=== PATIENT | female | born 1940 | race Caucasian/White ===

== ENCOUNTER 2019-11-11 11:46 | Day surgery (SDC) | payer MEDICARE, OTHER, SELFPAY ==
[2019-11-09 08:21] VITALS: BMI 20.3
[2019-11-11] VITALS (10 sets, daily range): BP systolic 76–136; BP diastolic 38–69; PULSE 56–83; RESP 9–20; TEMP 36.1–37.2; O2SAT 92–100; BMI 20.3
[2019-11-11] MEDS: LACTATED RINGERS 1,000 ML 42 ML IV ×2 (13:49→17:02)
--- NOTE | 2019-11-11 13:49 | SUR.PREOP ---
Pt. refused IV versed at this time.
--- NOTE | 2019-11-11 14:25 | PM.PREOP ---
Pre-operative Note Interval Note History & Physical reviewed/Exam performed by Physician: Yes Changes to H&P: No H&P completed within 30 days and has changed as indicated here:: Plan for L DR BROWN
[2019-11-11] MEDS: CEFAZOLIN 2 GM/100 ML FROZ.PIGGY IV (14:27)
--- NOTE | 2019-11-11 14:59 | SUR.OPER ---
Supine on padded OR bed, head on pillow, right arm secured on padded arm board at <90 degrees abduction left surgical arm under control of surgeon onarm table, legs uncrossed, safety belt at thigh, tape over blanket over lower legs.
[2019-11-11] MEDS: BUPIVACAINE 0.25% W/ EPI 30 ML VIAL INJ (15:46)
--- NOTE | 2019-11-11 16:22 | PM.OP.1 ---
Operative Date/Time/Diagnoses Date of procedure: 11/11/19 Time of procedure: 16:22 Pre-op diagnosis: Left distal radius fracture intra-articular Post-op diagnosis: same Procedure & Clinicians Procedure: Open reduction internal fixation left distal radius fracture. Same procedure as scheduled: Yes Indications: Displaced intra-articular distal radius fracture Surgeon: Ovidio Jacobo Linux Server Administrator: Kenny Enriquez Click Yes if Unassisted: No Anesthesia Type: General Operative Notes Findings: Displaced intra-articular distal radius fracture Closure Type: primary Specimen(s): none sent Prosthetic devices, grafts, tissues, transplants, or devices: Accu Med Acu-Loc 2 VDR plate narrow left With corresponding screws Estimated Blood Loss (mL): 20 Tourniquet time (min): 67 Procedure in detail: Patient was met in the preoperative holding area with signs of severe marked MD. All last minute questions were answered. The patient was then brought back to the operating room where she was placed on the operating room table and induced under general anesthesia. The left upper extremity is then prepped and draped in normal sterile fashion and a nonsterile tourniquet was placed. A time-out was performed verifying the site and side of surgery as well as the name of the patient. The arm was exsanguinated using Esmarch and the tourniquet was insufflated 250 mm of mercury. A 7 cm long incision over the FCR was made using a 15. Blade. The FCR tendon sheath was then opened using a 15 blade in the FCR tendon was retracted ulnarly. The floor of the FCR sheath was then opened and the FPL was retracted ulnarly as well exposing the pronator quadratus. This was taken off and in a '7'from the distal radius using electrocautery. This exposed fracture site a reduction maneuver was performed to reduce the distal radius. A narrow left Accu Med plate was then selected and K-wires were used to place it provisionally. Fluoroscopic guidance was used to verify our plate positioning. A 10 mm kickstand was used proximally. The distal row screws were then placed verifying there trajectory outside of the joint. Radial styloid screws were then also placed. The kickstand was then removed and the plate was sucked down to bone using a cortical screw followed by 2 locking screws in the proximal section. One of the radial styloid screws is close to the articular surface however under live fluoroscopic guidance is not that. That is within the joint and the screw was removed and the cage was used to verify that there is cortex still present. The screw was then downsized by 2 mm and replaced. No crepitance with flexion-extension range of motion of the wrist. The wound was then irrigated with normal saline. The quadratus was then repaired using 2 0 Vicryl interrupted fashion. The subcutaneous tissue was closed using 2 0 Vicryl interrupted fashion followed by 3 O nylon interrupted in the skin. Local injection was then performed. The tourniquet was let down and a short-arm splint was placed. Complications: none Post-operative Condition: stable Disposition: same day surgery Plan for aftercare: Patient is nonweightbearing on left upper extremity. Plan will be for return to clinic in 2 weeks for suture removal.
[2019-11-11] MEDS: HYDROMORPHONE 2 MG INJ IV ×5 (16:40→17:21)
--- NOTE | 2019-11-11 16:46 | SUR.PHASEI ---
Patient noted to be hypotensive going down to 70's/30's. Placed in trendelenburg position in bed. No symptoms of hypotension noted. Dr. Hawthorne notified and came to bedside. Blood pressure slowly coming up, Dr. Hawthorne states okay to give patient pain medication as ordered.
[2019-11-11] MEDS: fentaNYL 100 MCG/2 ML INJ IV ×2 (16:56→17:05)
--- NOTE | 2019-11-11 17:15 | SUR.PHASEI ---
1713 Rx given for pain, moaning w/exhalation. Declines to give a number. Denies nausea.
[2019-11-11] MEDS: OXYCODONE/ACETAMINOPHEN 5/325 TABLET 1 TAB PO ×2 (17:26→18:07)
--- NOTE | 2019-11-11 17:27 | SUR.PHASEI ---
care returned to Adilia Angeles RN; pt sitting up, eating pudding, states that her pain is improving.
== END 2019-11-11 18:29 | disposition home or self-care (01) ==
PROVIDERS: PCP Family Medicine; Referring Provider Orthopaedic Surgery Adult Reconstructive Orthopaedic Surgery; Visit Provider Orthopaedic Surgery Adult Reconstructive Orthopaedic Surgery
PROC: (CPT 25575; principal; 2019-11-11 13:45)
DX: S52.532A Colles' fracture of left radius, initial encounter for closed fracture (principal); W00.0XXA Fall on same level due to ice and snow, initial encounter; Y93.K1 Activity, walking an animal
CPT/HCPCS: 25575; J0690; J1100; J1170; J2405; J3010